=== PATIENT | female | born 1995 | race Two or more races ===

== ENCOUNTER 2022-02-26 08:01 | Emergency (ER) | payer SELFPAY ==
[~2022-02-26] VITALS: Ht 167.6 cm; Wt 61.2 kg
--- NOTE | 2022-02-26 08:01 | NUR ---
[facility] 41 AND [employer] AFTER BEING FOUND RUNNING IN AND OUT OF TRAFFIC, BLOOD SUGAR 109 PER EMS. ATTACHED TO MONITOR. SECURITY AT BEDSIDE FOR WANDING. SUZI CONROY.
--- NOTE | 2022-02-26 08:03 | NUR ---
DR HUTCHINSON AT BEDSIDE
[2022-02-26] MEDS ORDERED: OLANZAPINE 10 MG VIAL IM ONE ×2 (08:27→08:30)
[2022-02-26 08:45] LABS: BASOPHILS % (AUTO) 0.5 % (0.0-2.0); EOSINOPHILS % (AUTO) 0.3 % (0.0-6.0); HEMATOCRIT 34 % (33-45); LYMPHOCYTES # (AUTO) 1.7 K/uL (0.8-4.8); LYMPHOCYTES % (AUTO) 19.6 % (20.0-44.0); MEAN CORPUSCULAR HGB CONC 32 g/dl (31.0-36.0); MEAN CORPUSCULAR VOLUME 84 fL (82-100); MONOCYTES # (AUTO) 0.6 K/uL (0.1-1.30); MONOCYTES % (AUTO) 7.3 % (2.0-12.0); NEUTROPHILS # (AUTO) 6.4 K/uL (1.8-8.9); NEUTROPHILS % (AUTO) 72.3 % (43.0-81.0); PLATELET COUNT (AUTO) 373 K/uL (150-450); RED BLOOD CELL COUNT(AUTO) 4.11 MIL/uL (4.0-5.2); WHITE BLOOD COUNT (AUTO) 8.9 K/uL (4.3-11.0)
--- NOTE | 2022-02-26 08:46 | NUR ---
URINE COLLECTED AND SENT, COVID COLLECTED AND SENT
[2022-02-26 08:58] LABS: CALCIUM, SERUM 9.5 mg/dL (8.5-10.1); CARBON DIOXIDE 25 mmol/L (21-32); CHLORIDE 108 mmol/L (98-107); CREATININE 1.3 mg/dL (0.6-1.3); GLUCOSE 100 mg/dL (74-106); POTASSIUM 3.5 mmol/L (3.5-5.1); SODIUM SERUM 145 mmol/L (136-145); UREA NITROGEN, BLOOD 20 mg/dL (7-18)
[2022-02-26 09:02] LABS: ALANINE AMINOTRANSFERASE 28 U/L (12-78); ALBUMIN 4.6 g/dL (3.4-5.0); ALKALINE PHOSPHATASE 79 U/L (46-116); ASPARTATE AMINOTRANSFERASE 27 U/L (15-37); BILIRUBIN,DIRECT 0.1 mg/dL (0.0-0.2); BILIRUBIN,TOTAL 0.4 mg/dL (0.2-1.0); TOTAL PROTEIN, SERUM 8.3 g/dL (6.4-8.2)
[2022-02-26 09:03] LABS: ACETAMINOPHEN 0 ug/ml (10-30); ALCOHOL, BLOOD < 3 mg/dL (0-0)
[2022-02-26 09:49] LABS: BILIRUBIN,URINE SMALL (NEGATIVE); COLOR,URINE YELLOW (YELLOW); LEUKOCYTE ESTERASE ,URINE TRACE (NEGATIVE); NITRITE, URINE NEGATIVE (NEGATIVE); PROTEIN,URINE 100 mg/dl (NEGATIVE); UGLUCOSE NEGATIVE (NEGATIVE); UROBILINOGEN,URINE 0.2 EU/dL (0.2)
[2022-02-26 10:18] LABS: BACTERIA,URINE Moderate /HPF (None Seen); CALCIUM OXALATE CRYSTALS,UR Moderate /HPF (None Seen); RBC,URINE NONE SEEN /HPF (0-2); SQUAMOUS EPITHELIAL CELL,UR Moderate /HPF (None Seen)
--- NOTE | 2022-02-26 12:50 | NUR ---
SW attempted to interview pt. and pt. was asleep and not receptive to verbal cues. SW will follow up at a later time.
--- NOTE | 2022-02-26 14:55 | NUR ---
SW met with pt. at bedside again. The pt. is awake, alert & oriented x 2. The pt. states her name is Lupe Musa and her birthday is 01/07/2012. Per nursing, pt. has been providing different names. Pt. told SW she does not want to provide her real birthdate. SW explained reason for identifying her and wanting to assist her. Pt. responded with incoherent verbiage. Patient asked for food and water and SW notified Amanda in the ED. SW will be available as needed. Tis pt. is not currently on a hold. IDT will continue attempts to identifiy the pt. and plan a safe & proper discharge plan.
--- NOTE | 2022-02-26 16:24 | NUR ---
Patient given written and verbal discharge instructions. Patient verbalizes understanding of instructions. Patient is ambulatory with steady gait. Refuses offer of half-way placement. Patient given list of available shelters in surrounding area.
[2022-02-26 16:26] VITALS: BP 120/72
== END 2022-02-26 16:26 | disposition home or self-care (01) ==
LOC: ER 08:09 → EDBD 08:09 → ER 16:26
DX: F29 Unspecified psychosis not due to a substance or known physiological condition (principal); F15.10 Other stimulant abuse, uncomplicated; N39.0 Urinary tract infection, site not specified; Z20.822 Contact with and (suspected) exposure to COVID-19; Z59.00 Homelessness unspecified
CPT/HCPCS: 99291; 96372; 85025; 80048; 87086; 80076; 84703; 81001; 36415; 87426; 80143; 80320; 80307; J3490; C9803; G0480